=== PATIENT | female | born 2000 | race Caucasian/White ===

== ENCOUNTER → 2019-02-28 10:20 | Outpatient (BNVA) | payer SELFPAY | PROVIDERS: Visit Provider Emergency Medicine | DX: M54.9 Dorsalgia, unspecified (principal); M54.5 Low back pain; R11.2 Nausea with vomiting, unspecified | CPT/HCPCS: 81003; 81025 ==

== ENCOUNTER → 2019-03-05 09:47 | Outpatient (BNVA) | payer SELFPAY | PROVIDERS: PCP Emergency Medicine; Visit Provider Emergency Medicine | DX: R11.2 Nausea with vomiting, unspecified (principal); R10.9 Unspecified abdominal pain | CPT/HCPCS: 81003; 81025 ==

== ENCOUNTER 2020-01-03 17:02 | Emergency (ER) | payer SELFPAY ==
[2020-01-03 17:10] VITALS: BP 138/75; PULSE 78; RESP 18; TEMP 36.5; O2SAT 100; BMI 22.3
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
[2020-01-03] MEDS: acetaminophen 500 mg Tablet 1000 MG PO (17:51)
[2020-01-03 18:02] LABS: HCG Qualitative Urine. Negative (Negative)
[2020-01-03 18:26] VITALS: BP 109/61; PULSE 66; RESP 14; O2SAT 97
== END 2020-01-03 18:27 | disposition home or self-care (01) ==
PROVIDERS: Emergency Provider Physician Assistant; PCP Emergency Medicine
DX: S13.4XXA Sprain of ligaments of cervical spine, initial encounter (principal); R51.9 Headache, unspecified; V49.40XA Driver injured in collision with unspecified motor vehicles in traffic accident, initial encounter
CPT/HCPCS: 12345; 70450; 72125; 81025; 99281; 99283

== ENCOUNTER 2020-05-05 11:42 | Emergency (ER) | payer SELFPAY ==
[2020-05-05 12:02] VITALS: BP 112/76; PULSE 95; RESP 16; TEMP 36.8; O2SAT 96; BMI 23.1
[2020-05-05] MEDS: sodium chloride 0.9% 1,000 ML 999 ML IV (12:38)
[2020-05-05] MEDS: ondansetron 2 mg/ML SDV 2 mL 4 MG IVP (12:39)
[2020-05-05 13:00] LABS: Basophils % 0.3 %; Eosinophils % 0.1 %; Hematocrit 42.8 % (37.0-47.0); Hemoglobin 13.9 g/dL (11.5-15.3); Lymphocytes # 0.4 10^3/uL (1.5-6.5); Lymphocytes % 2.9 %; Mean Corpuscular HGB Conc 32.5 g/dL (30.0-36.0); Mean Corpuscular Hemoglobin 28.1 pg (28.0-34.0); Mean Corpuscular Volume 86.5 fL (81-99); Mean Platelet Volume 10.3 fL (7.4-10.4); Monocytes # 0.4 10^3/uL (0.2-0.9); Monocytes % 3.4 %; Neutrophils # 11.76 10^3/uL (1.8-8.0); Neutrophils % 93.1 %; Nucleated Red Blood Cells % 0 %; Platelet Count 228 10^3/cmm (130-400); Red Blood Count 4.95 10^6/uL (4.1-5.3); Red Cell Distribution Width 13.4 % (12.1-15.1); White Blood Count 12.6 10^3/uL (4.5-13.0)
--- NOTE | 2020-05-05 13:05 | W.ED.NAVMDI ---
HPI - Nausea/Vomiting/Diarrhea General: Chief complaint: Nausea/Vomiting/Diarrhea Stated complaint: N/V Time Seen by Provider: 05/05/20 12:17 History of Present Illness: HPI Narrative: Patient is a previously well 19-year-old female who comes to the ER complaining of nausea vomiting and diarrhea since 2 AM this morning. She says she also has other sick family members around with similar symptoms. Denies eating any bad foods, raw, undercooked, . She has the worst symptoms of her family and is unable to keep down liquids. Denies abdominal pain MD elicited complaint: nausea, vomiting and diarrhea Description of vomiting: food contents Description of diarrhea: watery Associated nausea: Yes Location of pain: None Severity: moderate Quality: cramping Exacerbating factors: eating Relieving factors: none Associated symtoms: Reports nausea; Denies anxiety, change in vision, chest pain, dizziness, fatigue, headache(s) or palpitations Review of Systems General: Reports: 10 or more systems reviewed and unremarkable except in HPI and below Const: Denies: fatigue Eyes: Denies: change in vision, blurry vision or eye redness ENMT: Denies: throat pain, swelling of lips/tongue, ear or mastoid pain or nasal congestion Card: Denies: chest pain, palpitations, irregular heart rhythm, edema, dyspnea on exertion or orthopnea Resp: Denies: dyspnea, productive cough or non-productive cough GI: Reports: nausea : Denies: flank pain, difficulty voiding, urinary frequency or urinary urgency Musc: Denies: neck pain, back pain, extremity pain, joint pain, joint redness, limited range of motion or muscle weakness Skin/Breast: Denies: rash, pruritus, erythema, skin pain or skin tenderness Neuro: Denies: headache(s), numbness in extremities, weakness in extremities, sensory changes, difficulty walking, dizziness, confusion or Slurred speech present Psych: Denies: anxiety or depression Endo: Denies: polyuria All/Imm: Denies: urticaria, throat swelling or tongue swelling PFSH ED PFSH: Family History Other Cancer Social History Smoking and tobacco status: never smoked Alcohol intake: never History of recent travel: No Current gender identity: Female Female Reproductive History: Date of last menstrual period: 04/11/20 Spontaneous abortions: No Physical Exam Const: COMMON NORMALS: no acute distress, average body habitus, patient oriented x3, no limitations, healthy appearing, alert and well nourished GENERAL APPEARANCE: cooperative, comfortable, well kempt and well developed ORIENTATION/CONSCIOUSNESS: Yes awake, Yes oriented to person, Yes oriented to place and Yes oriented to time HENMT: COMMON NORMALS: normocephalic, external ears normal and Normal external nose present HEAD & SCALP: normal to inspection and normocephalic NOSE: Normal external nose present EXTERNAL EAR: Yes external ears normal MOUTH: Normal oral and palatal mucosa present THROAT: posterior oropharynx normal Eye: COMMON NORMALS: Equal, round and reactive pupils present and EOMs intact bilaterally GENERAL EYE: appearance normal, both eyes and all related structures PUPIL: Yes Equal, round and reactive pupils present Neck/C-Spine: COMMON NORMALS: full ROM, no lymphadenopathy, no meningeal signs and no JVD GENERAL: Yes normal visual inspection Lymph: LYMPHATIC: no lymphadenopathy noted Chest: COMMONS NORMALS: normal inspection of the chest and normal palpation of entire chest wall Resp: COMMON NORMALS: normal respiratory effort, No retractions, No use of accessory muscles, clear to auscultation bilaterally and percussion normal EFFORT & INSPECTION: Yes able to speak in complete sentences AUSCULTATION: clear to auscultation bilaterally PERCUSSION: percussion normal Cardio: COMMON NORMALS: no JVD, regular rate, regular rhythm, S1 normal heart sound present, S2 normal heart sound present and Peripheral pulses 2+ throughout RATE: regular rate RHYTHM: regular rhythm HEART SOUNDS: S1 normal heart sound present and S2 normal heart sound present PERIPHERAL PULSES: Peripheral pulses 2+ throughout GI: COMMON NORMALS: Normal to inspection, nondistended, normoactive bowel sounds present, Soft to palpation, non-tender and no masses INSPECTION: Yes normal to inspection PALPATION: Yes Soft to palpation : COMMON NORMALS: Yes no CVA tenderness BLADDER/KIDNEY EXAM: Yes no CVA tenderness Back/Pelvis: COMMON NORMALS: no CVA tenderness, thoracic and lumbar spine normal to inspection, no thoracic nor lumbar tenderness and thoraco-lumbar ROM normal Extremity: COMMON NORMALS: normal to inspection, full ROM, capillary refill normal, no joint enlargement and no pedal edema GENERAL: Yes normal exam except as noted Neuro: COMMON NORMALS: patient oriented x3, CN's II-XII intact bilaterally, moves all extremities, no focal motor deficits, no sensory deficits noted and gait normal SENSORIUM/ORIENTATION: Yes alert, Yes oriented to person, Yes oriented to place and Yes oriented to time MENINGEAL SIGNS: Yes no meningeal signs Psych: COMMON NORMALS: mental status grossly normal, Normal thought process present, cooperative, normal affect and speech normal APPEARANCE: Yes well kempt ATTITUDE: Yes calm SPEECH: Yes normal speech THOUGHT PROCESS: Normal thought process present Skin: COMMON NORMALS: no rashes or lesions noted GENERAL SKIN EXAM: no rashes or lesions noted Course Vital Signs: Vital signs: Vital Signs Temperature 98.3 F 05/05/20 12:02 Pulse Rate 95 05/05/20 12:02 Respiratory Rate 16 05/05/20 12:02 Blood Pressure 112/76 05/05/20 12:02 Pulse Oximetry 96 05/05/20 12:02 MDM - Nausea/Vomiting/Diarrhea MDM Narrative: Medical decision making narrative: The patient came in after an episode of vomiting and diarrhea this for the past 10 to 12 hours. In the ER she has not vomited nor diarrhea. She was given Zofran and IV fluids with improvement of her symptoms and she was resting comfortably in the room. She is able to tolerate sips of water and stable for discharge home. Also has a slight pain to her left lower molar. We will discharge her with amoxicillin. Recommended she follow-up with dentist in a couple days to discuss further and return to the ER with any worsening symptoms. Lab Data: Labs: Lab Results 05/05/20 05/05/20 05/05/20 Range/Units 12:27 12:38 12:38 WBC 12.6 (4.5-13.0) 10^3/ uL RBC 4.95 (4.1-5.3) 10^6/u L Hgb 13.9 (11.5-15.3) g/dL Hct 42.8 (37.0-47.0) % MCV 86.5 (81-99) fL MCH 28.1 (28.0-34.0) pg MCHC 32.5 (30.0-36.0) g/dL RDW 13.4 (12.1-15.1) % Plt Count 228 (130-400) 10^3/c mm MPV 10.3 (7.4-10.4) fL Neut % (Auto) 93.1 % Lymph % (Auto) 2.9 % Aurora % (Auto) 3.4 % Eos % (Auto) 0.1 % Baso % (Auto) 0.3 % Neut # (Auto) 11.76 H (1.8-8.0) 10^3/u L Lymph # (Auto) 0.4 L (1.5-6.5) 10^3/u L Aurora # (Auto) 0.4 (0.2-0.9) 10^3/u L Eos # (Auto) 0.0 (0.0-0.8) 10^3/u L Baso # (Auto) 0.0 (0.0-0.1) 10^3/u L Nucleated RBC % (a uto) 0 % Nucleated RBCs # 0.0 /100WBC Sodium 137 (136-145) mmol/L Potassium 4.1 (3.5-5.1) mmol/L Chloride 103 (98-107) mmol/L Carbon Dioxide 22 (22-29) mmol/L Anion Gap 16.1 (5-19) BUN 14 (6-20) mg/dL Creatinine 0.7 (0.5-0.9) mg/dL GFR Calculation 106.7 (90-130) mL/min Glucose 118 H (65-115) mg/dL Calculated Osmolal ity 286 (285-295) mOsm/k g Lactate 1.1 (0.5-2.2) mmol/L Calcium 9.3 (8.5-10.5) mg/dL Total Bilirubin 0.5 (0.15-1.2) mg/dL AST 24 (0-32) U/L ALT 51 H (0-33) U/L Alkaline Phosphata se 84 (35-105) IU/L Total Protein 8.3 (6.6-8.7) g/dL Albumin 4.7 (3.5-5.2) g/dL Globulin 3.6 (1.3-4.6) g/dL Lipase 18 (13-60) U/L HCG, Qual (Negative) Urine Color (Yellow) Urine Appearance (CLEAR) Urine pH (5-7) Ur Specific Gravit y (1.005-1.030) Urine Protein (Negative) Urine Glucose (UA) (Normal) Urine Ketones (Negative) Urine Blood (Negative) Urine Nitrate (Negative) Urine Bilirubin (Negative) Urine Urobilinogen (Negative) mg/dL Ur Leukocyte Jenifer ase (Negative) 05/05/20 05/05/20 Range/Units 12:38 13:16 WBC (4.5-13.0) 10^3/ uL RBC (4.1-5.3) 10^6/u L Hgb (11.5-15.3) g/dL Hct (37.0-47.0) % MCV (81-99) fL MCH (28.0-34.0) pg MCHC (30.0-36.0) g/dL RDW (12.1-15.1) % Plt Count (130-400) 10^3/c mm MPV (7.4-10.4) fL Neut % (Auto) % Lymph % (Auto) % Aurora % (Auto) % Eos % (Auto) % Baso % (Auto) % Neut # (Auto) (1.8-8.0) 10^3/u L Lymph # (Auto) (1.5-6.5) 10^3/u L Aurora # (Auto) (0.2-0.9) 10^3/u L Eos # (Auto) (0.0-0.8) 10^3/u L Baso # (Auto) (0.0-0.1) 10^3/u L Nucleated RBC % (a uto) % Nucleated RBCs # /100WBC Sodium (136-145) mmol/L Potassium (3.5-5.1) mmol/L Chloride (98-107) mmol/L Carbon Dioxide (22-29) mmol/L Anion Gap (5-19) BUN (6-20) mg/dL Creatinine (0.5-0.9) mg/dL GFR Calculation (90-130) mL/min Glucose (65-115) mg/dL Calculated Osmolal ity (285-295) mOsm/k g Lactate (0.5-2.2) mmol/L Calcium (8.5-10.5) mg/dL Total Bilirubin (0.15-1.2) mg/dL AST (0-32) U/L ALT (0-33) U/L Alkaline Phosphata se (35-105) IU/L Total Protein (6.6-8.7) g/dL Albumin (3.5-5.2) g/dL Globulin (1.3-4.6) g/dL Lipase (13-60) U/L HCG, Qual Negative (Negative) Urine Color Yellow (Yellow) Urine Appearance Clear (CLEAR) Urine pH 6.5 (5-7) Ur Specific Gravit y 1.010 (1.005-1.030) Urine Protein Neg (Negative) Urine Glucose (UA) Norm (Normal) Urine Ketones Negative (Negative) Urine Blood Neg (Negative) Urine Nitrate Negative (Negative) Urine Bilirubin Neg (Negative) Urine Urobilinogen Norm (Negative) mg/dL Ur Leukocyte Jenifer ase Negative (Negative) Discharge Plan Discharge Patient Disposition: Home Clinical Impression: Gastroenteritis Condition: Stable Prescriptions: New ondansetron 4 mg tablet,disintegrating 4 mg PO Q8H PRN (Reason: Nausea And Vomiting) 5 Days Qty: 15 RF: 0 amoxicillin 500 mg capsule 500 mg PO TID 10 Days Qty: 30 RF: 0 No Action citalopram 10 mg tablet 10 mg PO BEDTIME RF: 0 hydroxyzine HCl 25 mg tablet 25 - 50 mg PO TID PRN (Reason: Anxiety) RF: 0 chlorhexidine gluconate 0.12 % mouthwash See Rx Instructions .ROUTE .COMPLEX RF: 0 Discharge Orders: Discharge ED (Routine); Ordered 05/05/20 Ordered By: Jose Delatorre Referrals: Quentin Kcoh PA [Primary Care Provider] - Discharge Diet: Advance as tolerated Discharge Activity: Resume usual activity Patient Instructions: Gastroenteritis (ED), Toothache (ED), Opioid Safety Activity Restrictions/Additional Instructions: You have had an episode of vomiting and diarrhea. Please use Zofran to help with your nausea and drink lots of fluids. Return to the ER with worsening symptoms and follow-up with your dentist to discuss your dental pain further. ER with worsening symptoms Stand Alone Forms: Work/School Release Coding Level of Care Code ED Plow Holder for Mikaela Fwd Exam Comprehensive
[2020-05-05 13:09] LABS: Lactate (Lactic Acid level) 1.1 mmol/L (0.5-2.2)
[2020-05-05 13:29] LABS: Add Urine Microscopic? NO
[2020-05-05 13:30] LABS: Bilirubin Urine Neg (Negative); Blood Urine Neg (Negative); Glucose Urine UA Norm (Normal); Ketones Urine Negative (Negative); Leukocyte Esterase Urine Negative (Negative); Nitrate Urine Negative (Negative); Protein Urine Neg (Negative); Urine Appearance Clear (CLEAR); Urine Color Yellow (Yellow); Urobilinogen Urine Norm (Negative); pH Urine 6.5 (5-7)
[2020-05-05 13:39] LABS: Alanine Aminotransferase 51 U/L (0-33); Albumin Level 4.7 g/dL (3.5-5.2); Alkaline Phosphatase 84 IU/L (35-105); Anion Gap 16.1 (5-19); Aspartate Amino Transferase 24 U/L (0-32); Blood Urea Nitrogen 14 mg/dL (6-20); Calcium 9.3 mg/dL (8.5-10.5); Carbon Dioxide 22 mmol/L (22-29); Chloride 103 mmol/L (98-107); Globulin 3.6 g/dL (1.3-4.6); Glomerular Filtration Rate 106.7 mL/min (90-130); Glucose 118 mg/dL (65-115); Lipase 18 U/L (13-60); Osmolality Calculated 286 mOsm/kg (285-295); Potassium 4.1 mmol/L (3.5-5.1); Sodium 137 mmol/L (136-145); Total Bilirubin 0.5 mg/dL (0.15-1.2); Total Protein 8.3 g/dL (6.6-8.7)
[2020-05-05 14:09] LABS: HCG, Serum Qual Negative (Negative)
== END 2020-05-05 15:20 | disposition home or self-care (01) ==
PROVIDERS: Emergency Provider Family Medicine; PCP Emergency Medicine
DX: K52.9 Noninfective gastroenteritis and colitis, unspecified (principal)
CPT/HCPCS: 80053; 81003; 83605; 83690; 84703; 85025; 96361; 96374; 99283; J2405; J7030

== ENCOUNTER → 2020-08-31 17:00 | Outpatient (BNVA) | payer BC, SELFPAY | PROVIDERS: PCP Emergency Medicine; Visit Provider Nurse Practitioner Family | DX: Z34.90 Encounter for supervision of normal pregnancy, unspecified, unspecified trimester (principal) | CPT/HCPCS: 81025 ==

== ENCOUNTER 2021-01-12 17:11 | Emergency (ER) | payer MEDICAID, SELFPAY ==
[2021-01-12 17:27] VITALS: BP 112/74; PULSE 93; RESP 18; TEMP 37.2; O2SAT 97; BMI 22.3
--- NOTE | 2021-01-12 17:34 | W.ED.URI ---
HPI - URI/Sore Throat General: Chief Complaint: Shortness of Breath/Dyspnea Stated Complaint: COVID +/GENERAL UNWELLNESS Time Seen by Provider: 01/12/21 17:33 History of Present Illness: HPI Narrative: Patient comes in for evaluation due to testing positive for COVID-19 on Sunday. Patient talked to her ACTIVATED SLUDGE ATTENDANT today, as she is 23 weeks , they recommended she be checked out in the ER since she is feeling poorly. Patient is scheduled to be seen tomorrow in [place] to be evaluated for monoclonal antibody therapy. Patient is alert oriented. Patient appears mildly unwell but not toxic. Patient appears no acute distress. Associated symptoms: Reports chills and fever(s) Review of Systems General: Reports: 10 or more systems reviewed and unremarkable except in HPI and below Const: Reports: fever(s), chills and malaise PFSH ED PFSH: Family History Other Cancer Social History Smoking and tobacco status: never smoked Alcohol intake: never History of recent travel: No Current gender identity: Female Female Reproductive History: Date of last menstrual period: 04/11/20 Spontaneous abortions: No Physical Exam Const: COMMON NORMALS: no acute distress and patient oriented x3 GENERAL APPEARANCE: cooperative HENMT: COMMON NORMALS: normocephalic and Normal external nose present HEAD & SCALP: normal to inspection and normocephalic NOSE: Normal external nose present Eye: GENERAL EYE: appearance normal, both eyes and all related structures Neck/C-Spine: COMMON NORMALS: full ROM Chest: COMMONS NORMALS: normal inspection of the chest Resp: COMMON NORMALS: normal respiratory effort and clear to auscultation bilaterally EFFORT & INSPECTION: Yes able to speak in complete sentences AUSCULTATION: clear to auscultation bilaterally Cardio: COMMON NORMALS: regular rate and regular rhythm PALPATION: normal PMI RATE: regular rate RHYTHM: regular rhythm GI: COMMON NORMALS: non-tender : COMMON NORMALS: Yes no CVA tenderness BLADDER/KIDNEY EXAM: Yes no CVA tenderness Back/Pelvis: COMMON NORMALS: no CVA tenderness and thoracic and lumbar spine normal to inspection Extremity: COMMON NORMALS: normal to inspection Neuro: COMMON NORMALS: patient oriented x3 and moves all extremities Psych: COMMON NORMALS: mental status grossly normal and cooperative Skin: COMMON NORMALS: no rashes or lesions noted GENERAL SKIN EXAM: no rashes or lesions noted Course Vital Signs: Vital signs: Vital Signs Temperature 99.0 F 01/12/21 17:27 Pulse Rate 93 01/12/21 17:27 Respiratory Rate 18 01/12/21 17:27 Blood Pressure 112/74 01/12/21 17:27 Pulse Oximetry 97 01/12/21 17:27 MDM - URI/Sore Throat MDM Narrative: Medical decision making narrative: 20-year-old female comes in today for evaluation. Patient has been ill since Sunday and did testing at [facility] emergency room on Sunday and tested positive for COVID-19. Patient had talked to her ACTIVATED SLUDGE ATTENDANT today, as she is 23 weeks , and they are setting up for her to be evaluated for monoclonal antibody therapy tomorrow. They recommended she be evaluated in the ER today due to feeling poorly. Exam is unremarkable. Lungs are clear to auscultation heart rates regular in the 80s with no murmur. Vital signs are normal. Differential diagnosis includes Covid pneumonia, COVID-19 infection, dehydration. Reviewed exam with patient recommending home and rest continue drinking plenty of fluids and using acetaminophen for fever and discomfort. I think the patient probably would benefit from monoclonal antibody therapy she already has an appointment to be evaluated and treated in [place] tomorrow and I will not be able to perform this any sooner. I recommended patient do supportive care and follow-up with primary care and ACTIVATED SLUDGE ATTENDANT for further instruction. Discharge Plan Discharge Patient Disposition: Home Clinical Impression: COVID-19 affecting in second trimester Condition: Stable Prescriptions: No Action doxylamine-pyridoxine (vit B6) [Diclegis] 10-10 mg tablet,delayed release (DR/EC) 1 tab PO BID Qty: 30 RF: 0 omeprazole 20 mg capsule,delayed release(DR/EC) 20 mg PO DAILY RF: 0 promethazine 25 mg tablet 25 mg PO TID PRNRF: 0 Discharge Orders: Discharge ED (Routine); Ordered 01/12/21 Ordered By: Kurtis Mims Referrals: Quentin Koch PA [Primary Care Provider] - Discharge Diet: Usual diet Discharge Activity: Increase activity as tolerated Patient Instructions: Viral Syndrome (ED) Activity Restrictions/Additional Instructions: Home and rest. Drink plenty of fluids. Use acetaminophen as needed for fever. Keep appointment for follow-up with ACTIV[employer] SLUDGE ATTENDANT tomorrow for monoclonal antibody therapy. Return to ER for new concerns. Coding Level of Care Code ED Bilingual Medical Assistant for Mikaela Yousif
[2021-01-12 18:02] VITALS: BP 112/74; PULSE 93; RESP 18; TEMP 37.2; O2SAT 97
== END 2021-01-12 18:03 | disposition home or self-care (01) ==
PROVIDERS: Emergency Provider Nurse Practitioner Family; PCP Emergency Medicine
DX: O98.512 Other viral diseases complicating pregnancy, second trimester (principal); U07.1 COVID-19; Z3A.23 23 weeks gestation of pregnancy
CPT/HCPCS: 99281

== ENCOUNTER 2021-04-05 13:44 | Outpatient (CLI) | payer MEDICAID, SELFPAY ==
[2021-04-05] VITALS (8 sets, daily range): BP systolic 110–119; BP diastolic 59–77; PULSE 64–90; RESP 17
[2021-04-05] MEDS: lactated ringers 1,000 ML 999 ML IV (14:48)
[2021-04-05] MEDS: lactated ringers 1,000 ML 125 ML IV (15:58)
--- NOTE | 2021-04-05 17:01 | PC.NURSE ---
Dr Chaparro ordered pt to receive a dose of terbutaline. Patient refused stating that she doesn't like to take the meds because they didn't work with her last . Nurse educated pt on risks of not taking the medication, discussed potential for baby to need NICU care. Pt stated that she doesn't care. She hopes that she will go home and keep [facility] and will just go ahead and have the baby.
== END 2021-04-05 17:05 | disposition home or self-care (01) ==
LOC: OPOB 13:45 → OBGYN 13:46
PROVIDERS: PCP Emergency Medicine; Visit Provider Obstetrics & Gynecology
DX: O26.899 Other specified pregnancy related conditions, unspecified trimester (principal); Z3A.00 Weeks of gestation of pregnancy not specified; R10.9 Unspecified abdominal pain
CPT/HCPCS: 59025; 99211

== ENCOUNTER → 2021-08-31 11:09 | Outpatient (BNVA) | payer MEDICAID, SELFPAY | PROVIDERS: PCP Emergency Medicine; Visit Provider Emergency Medicine | DX: Z20.822 Contact with and (suspected) exposure to COVID-19 (principal); B34.9 Viral infection, unspecified | CPT/HCPCS: 87426 ==

== ENCOUNTER → 2021-08-31 11:09 | Outpatient (BNVA) | payer MEDICAID, SELFPAY | PROVIDERS: PCP Emergency Medicine; Visit Provider Emergency Medicine | DX: B34.9 Viral infection, unspecified (principal) | CPT/HCPCS: 87426 ==

== ENCOUNTER → 2021-11-16 09:29 | Outpatient (BNVA) | payer MEDICAID, SELFPAY | PROVIDERS: PCP Nurse Practitioner Family; Visit Provider Nurse Practitioner Family | DX: M54.2 Cervicalgia (principal); M54.6 Pain in thoracic spine | CPT/HCPCS: 72040; 72072 ==

== ENCOUNTER → 2023-05-02 17:29 | Outpatient (BNVA) | payer MEDICAID, SELFPAY | PROVIDERS: PCP Nurse Practitioner Family; Visit Provider Emergency Medicine | DX: J02.9 Acute pharyngitis, unspecified (principal); J11.1 Influenza due to unidentified influenza virus with other respiratory manifestations | CPT/HCPCS: 87071; 87880 ==

== ENCOUNTER 2024-10-15 10:49 | Emergency (ER) | payer BC, MEDICAID, SELFPAY ==
--- OUTSIDE RECORDS SUMMARY | 2024-10-15 10:54 | XMS_ITS | Encounter Summary ---
[facility] Address [address] [place] [address] Care Team Providers Care Nuclear Test Technician Name Role Phone Mo Bingham Primary Care Provider [phone] Encounter Details Date Type Department Care Team (Late st Contact Info) Description 01/13/2021 Lab Requisition [facility] [address] [place] [id number] Eleazar Catalina GER[facility]D [facility] [phone] Social History Tobacco Use Types Packs/Day Years Used Date Smoking Tobacco: Never Smokeless Tobacco: Never Alcohol Use Standard Drinks/Week Comments No 0 (1 standard drink = 0.6 oz pur e alcohol) Comments Yes Sex and Gender Information Value Date Recorded Sex Assigned at Female 04/29/2023 6:21 AM CDT Legal Sex Female 1:51 PM FURNITURE REPAIR TECHNICIAN Gender Identity Female 04/29/2023 6:21 AM CDT Sexual Orientation Not on file COVID-19 Exposure Response Date Recorded In the last month, have you been in contact with someone who was confirmed or suspected to have Coronavirus / COVID-19? Yes 01/13/2021 2:51 PM FURNITURE REPAIR TECHNICIAN documented as of this encounter Plan of Treatment Upcoming Encounters Date Type Department Care Team (Late st Contact Info) Description 11/04/2024 9:00 AM CDT Office Visit [facility] O[facility] [place] [address] [place] [address] Susanne Maxwell FNP [address] [place] [address] 11/11/2024 10:30 AM CDT Office Visit [facility] OBGYN [place] [address] [place] [address] Christopher Rodríguez MD [address] [place] [address] documented as of this encounter Procedures Procedure Name Priority Date/Time Associated Diagnosis Comments EXTRA TUBE (SST/GOLD) Routine 01/13/2021 4:17 PM FURNITURE REPAIR TECHNICIAN CBC WITH DIFFERENTIAL Stat 01/13/2021 4:17 PM FURNITURE REPAIR TECHNICIAN BASIC METABOLIC PANEL Stat 01/13/2021 4:17 PM FURNITURE REPAIR TECHNICIAN documented in this encounter Results * EXTRA TUBE (SST/GOLD) (01/13/2021 4:17 PM FURNITURE REPAIR TECHNICIAN) Blood Collection / Unknown 01/13/2021 4:17 PM FURNITURE REPAIR TECHNICIAN 01/13/2021 5:44 PM FURNITURE REPAIR TECHNICIAN May Jeremias Bush [facility] CHEMISTRY ORDERABLES Rubia poon Result [facility] LABORATORY SERVICES [facility] CLIA # [id number] [id number] [place], [place] [id number] * (ABNORMAL) BASIC METABOLIC PANEL (01/13/2021 4:17 PM FURNITURE REPAIR TECHNICIAN) Pathologist [facility] SODIUM 138 136 - 145 mmol/L 01/13/2021 6:[address] [facility] POTASSIUM 3.2(L) 3.5 - 5.1 mmol/L 01/13/2021 6:[address] [facility] CHLORIDE 104 98 - 107 mmol/L 01/13/2021 6:[address] [facility] CO2 21(L) 22 - 29 mmol/L 01/13/2021 6:[address] [facility] CALCIUM 8.5(L) 8.6 - 10.0 mg/dL 01/13/2021 6:[address] [facility] BUN 4(L) 6 - 20 mg/dL 01/13/2021 6:[address] [facility] CREATININE 0.53 0.51 - 0.95 mg/dL 01/13/2021 6:[address] [facility] GLUCOSE 98 74 - 99 mg/dL 01/13/2021 6:[address] [facility] GFR >60 mL/min/1.7 3 sq meter 01/13/2021 6:[address] [facility] Comment: eGFR has not been validated for use in the elderly (> 70 years of age), women, patients with serious co-morbid conditions, or persons with extremes of body size or muscle mass and should also be interpreted with caution in patients with acute kidney failure, dialysis dependent patients, patients reporting exceptional dietary intake (e.g. vegetarian diet, high protein diets, creatine supplementation), and patients with severe liver disease. Based on National Kidney Disease Education Program If patient is , please refer to the GFR result. GFR, >60 mL/min/1.7 3 sq meter 01/13/2021 6:[address] [facility] ANION GAP 13 9 - 20 mmol/L 01/13/2021 6:[address] [facility] Blood Collection / Unknown 01/13/2021 4:17 PM FURNITURE REPAIR TECHNICIAN 01/13/2021 5:43 PM FURNITURE REPAIR TECHNICIAN May Jeremias Bush [facility] CHEMISTRY ORDERABLES Rubia cleve Result [facility] CLIA # [id number] [address] [facility] [place] [address] * (ABNORMAL) CBC WITH DIFFERENTIAL (01/13/2021 4:17 PM FURNITURE REPAIR TECHNICIAN) [facility] WBC 4.4(L) 4.5 - 11.0 K/uL 01/13/2021 5:[address] [facility] RBC 3.93(L) 4.20 - 5.40 M/uL 01/13/2021 5:[address] [facility] HEMOGLOBIN 11.1(L) 12.0 - 16.0 g/dL 01/13/2021 5:[address] [facility] HEMATOCRIT 34.4(L) 36.0 - 46.0 % 01/13/2021 5:[address] [facility] MCV 87.5 84.0 - 103.0 fL 01/13/2021 5:[address] [facility] MCH 28.2 27.0 - 34.0 pg 01/13/2021 5:[address] [facility] MCHC 32.3 30.0 - 35.0 g/dL 01/13/2021 5:[address] [facility] RDW 14.3 11.0 - 14.5 % 01/13/2021 5:[address] [facility] RDW-STDEV 46.1 37.0 - 54.0 fL 01/13/2021 5:[address] [facility] PLATELETS 182 140 - 440 K/uL 01/13/2021 5:[address] [facility] MPV 10.2 8.9 - 12.8 fL 01/13/2021 5:[address] [facility] NEUTROPHILS 74 42 - 75 % 01/13/2021 5:[address] [facility] LYMPHOCYTES 17(L) 24 - 44 % 01/13/2021 5:[address] [facility] MONOCYTES 8 2 - 10 % 01/13/2021 5:[address] [facility] EOSINOPHILS 1 0 - 7 % 01/13/2021 5:[address] [facility] BASOPHILS 0 0 - 1 % 01/13/2021 5:[address] [facility] IMMATURE GRANULOCYTES 0 0 - 2 % 01/13/2021 5:[address] [facility] NEUTROPHIL ABSOLUTE 3.30 2.00 - 8.00 K/uL 01/13/2021 5:[address] [facility] LYMPHOCYTE ABSOLUTE 0.74(L) 1.20 - 4.00 K/uL 01/13/2021 5:[address] [facility] MONOCYTE ABSOLUTE 0.35 0.10 - 0.60 K/uL 01/13/2021 5:[address] [facility] EOSINOPHIL ABSOLUTE 0.03 0.00 - 0.70 K/uL 01/13/2021 5:[address] [facility] BASOPHILS ABSOLUTE 0.01 0.00 - 0.20 K/uL 01/13/2021 5:[address] [facility] IMMATURE GRANULOCYTES ABSOLUTE 0.01 0.00 - 0.10 K/uL 01/13/2021 5:[address] [facility] Blood Collection / Unknown 01/13/2021 4:17 PM FURNITURE REPAIR TECHNICIAN 01/13/2021 5:42 PM FURNITURE REPAIR TECHNICIAN May Jeremias Bush NON DESTRUCTIVE EVALUATION MANAGER HEMATOLOGY ORDERABLES Fin al Result [facility] CLIA # [id number] [address] [address] [place] [address] documented in this encounter Visit Diagnoses Not on filedocumented in this encounter Care Teams Nuclear Test Technician Relationship Specialty Start Date End Date Mo Bingham DO [address] [place] [address] PCP - General 05/10/20 documented as of this encounter
--- OUTSIDE RECORDS SUMMARY | 2024-10-15 10:54 | XMS_ITS | Clinical Summary ---
Author Organization [facility] on Address [address] [place] [address] [place] [address] Phone Care Team Providers Care Ornamenter Name Role Phone Mo Bingham DO Primary Care Provider [phone] Allergies No known active allergies Medications dicyclomine (BENTYL) 20 mg tablet take one tablet by mouth four times daily Active dicyclomine (BENTYL) 20 mg tablet Take 1 Tablet (20 mg) by mouth 4 times daily. 120 Tablet 08/14/19 24 Active progesterone micronized (PROMETRIUM) 100 mg Capsule Take 100 mg by mouth daily. 02/24/19 25 Active ibuprofen (MOTRIN) 800 mg tablet take 1 tablet by mouth every 8 hours with food or milk as needed 09/09/19 25 Active sertraline (ZOLOFT) 50 mg tablet Take 1 Tablet by mouth daily at bedtime. 08/08/19 25 Active acetaminophen (TYLENOL) 500 mg tablet Take 2 Tablets (1,000 mg) by mouth every 8 hours. 09/19/19 25 Active promethazine (PHENERGAN) 12.5 mg Tablet Take 1 Tablet by mouth every 6 hours. 03/28/19 24 025 Discontinued oxyCODONE (ROXICODONE) 5 mg tabletIndicati ons:Postoperat sofie pain Take 1 Tablet (5 mg) by mouth every 4 hours as needed for Pain, Break-Throu gh. 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 Generalized anxiety disorder 05/10/2020 Abdominal pain, acute, right upper quadrant 08/06 Abnormal weight loss 12/09/2017 Routine follow-up 11/28/2016 Resolved Problems Problem Noted Date Diagnosed Date Resolved Date Threatened labor 03/16/2021 affected by growth restriction 02/02/2021 05/24/2021 24 weeks gestation of 01/18/2021 03/07/2021 Hyperemesis gravidarum 12/03/201703/07 Encounter for supervision of normal first in first trimester 12/03/2017 05/24/2021 Vaginal delivery 05/24/2021 Gestational hypertension, third trimester 05/24/2021 Encounters Date Type Department Care Team Description 10/01/2024 Results Follow-Up [facility] [address] [place] [address] Christopher Rodríguez MD VAGINOSIS/VAGINITIS PANEL PLUS 09/30/2024 9:10 AM CDT Office Visit [facility] [address] [place] [address] Christopher Rodríguez MD Vaginal irritation (Primary Dx); Postop check 09/23/2024 External Device Data STL ABSTRACTION Provider, Abstract 09/23/2024 Orders Only [facility] [address] [place] [address] Carlotta Oliveira RN Postoperative pain 09/22/2024 Telephone [facility] [address] [facility] [address] [place] [address] Christopher Rodríguez MD pictures and prescription/JAF 09/19/2024 Orders Only [address] [place] [address] Carlotta Oliveira, JOSSIE Postoperative pain 09/19/[address] [place] [address] Christopher Rodríguez MD prescription/JAF 09/18/2024 1:34 PM CDT Anesthesia Event [facility] [address] [place] [address] Uche Rodriguez MD [facility], 09/18/2024 1:26 PM CDT - 09/18/2024 2:21 PM CDT Surgery [facility] [address] [place] [address] Christopher Rodríguez MD LAPAROSCOPY DIAGNOSTIC/OPERATIVE 09/18/2024 11:48 AM CDT - 09/18/2024 4:20 PM CDT Hospital Encounter [facility] Pre-Op [address] [place] [address] Christopher Rodríguez MD Painful menstrual periods Discharge Disposition: Home or Self Care 09/18/[address] [place] [address] Christopher Rodríguez MD running late/JAF 09/15/2024 10:00 AM CDT - 09/15/2024 11:59 PM CDT Hospital Encounter [facility] Pre Admission Testing [address] [place] [id number] Christopher Rodríguez MD Discharge Disposition: Home or Self Care 09/15/2024 9:10 AM CDT History & Physical [facility] [place] [address] [place] [address] Christopher Rodríguez MD Pre-op testing (Primary Dx); Preop examination 08/20/2024 External Device Data STL ABSTRACTION Provider, Abstract 08/20/2024 External Device Data STL ABSTRACTION Provider, Abstract 08/19/2024 Orders Only [facility] [place] [address] [place] [address] Christopher Rodríguez MD 07/23/2024 External Device Data STL ABSTRACTION Provider, Abstract from Last 3 Months Immunizations Immunization Administration Dates Next Due (ADACEL/BOOSTRIX)(10 YR UP) TDAP VACCINE, 0.5ML, IM 04/29/2018 INFLUENZA VACCINE QUADRIVALENT 3 YR UP PF IM 09/2017 Influenza Seasonal Unspecified Formulation IM Family History Medical History Relation Name Comments Diabetes Father Aleksey chatterjee Colon Cancer Maternal Aunt 1 Colon Cancer Maternal Aunt 2 Brionna Auguste Celiac Disease Mother Palma work Cancer Other aunt colon cancer Thyroid Disease Sister Ela Cavazos Breast Cancer Neg Hx Ovarian Cancer Neg Hx Relation Name Status Comments Father Aleksey chatterjee Maternal Aunt 1 Alive Maternal Aunt 2 Brionna Auguste Alive Mother Palma work Alive Other aunt Alive Sister Ela Cavazos Social History Tobacco Use Types Packs/Day Years Used Date Smoking Tobacco: Never Smokeless Tobacco: Never Tobacco Cessation:Counseling Given: Not Answered Alcohol Use Standard Drinks/Week Comments Not Currently 0 (1 standard drink = 0.6 oz pur e alcohol) rarely Feeling Safe Answer Date Recorded Do you worry about feeling s afe and happy with the people in your life? No 03/24/2024 Food Insecurity Answer Date Recorded Do you find you are eating l ess than you should because you can t pay for food? No 03/24/2024 Transportation Needs Answer Date Record ed Have you gone without health care because you didn t have a way to get there? Or worry about transportation for future doctor visits, miner pick medication, etc.? No 2024 Housing Stability Answer Date Recorded Do you worry you won t have a steady place to sleep or struggle to pay rent or mortgage? No 03/24/2024 Utility Needs Answer Date Recorded Do you have difficulty payin g for utility costs (electric, water or gas bills)? No 03/24/2024 Medication Needs Answer Date Recorded Have you skipped taking medi cation due to cost or worry you can t afford new medications? No 03/24/2024 Feeling Safe Answer Date Recorded Are you in a relationship wi th someone who hurts you emotionally and/or physically? 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 Gender Identity Female 04/29/2023 6:21 AM CDT Sexual Orientation Not on file Last Filed Vital Signs Vital Sign Reading Time Taken Comments Blood Pressure 112/60 09/30/2024 9:18 AM CDT Pulse 63 09/18/2024 3:56 PM CDT Temperature 36.2 C (97.1 F) 09/18/2024 3:56 PM CDT Respiratory Rate 16 09/18/2024 3:56 PM CDT Oxygen Saturation 100% 09/18/2024 3:56 PM CDT Inhaled Oxygen Concentration - - Weight 77.6 kg (171 lb) 09/30/2024 9:18 AM CDT Height 162.6 cm (5' 4 ) 09/30/2024 9:18 AM CDT Body Mass Index 29.35 09/30/2024 9:18 AM CDT Plan of Treatment Upcoming Encounters Date Type Department Care Team (Late st Contact Info) Description 11/04/2024 9:00 AM CDT Office Visit [facility] [place] [address] [place] [address] Susanne Maxwell FNP [address] [place] [address] 11/11/2024 10:30 AM CDT Office Visit [facility] [place] [address] [place] [address] Christopher Rodríguez MD [address] [place] [address] Health Maintenance Due Date Last Done Comments HPV VACCINES (1 - 3-dose series) 10/05/2014 HEPATITIS B VACCINES (1 of 3 - 19+ 3-dose series) 10/05/2018 HPV/Cotest (21-29) 10/05/2020 Preventative Visit-Managed Medicaid 07/13/202207/12 CERVICAL CANCER SCREENING 12/15/2023 PAP SMEAR 12/15/2023 12/14/2020 INFLUENZA VACCINE (#1) 2024 12/13/2017, 2017 DTAP/TDAP/TD VACCINES (2 - Td or Tdap) 04/29/2028 CHLAMYDIA SCREENING (ANNUAL) 11-24 YEARS Discontinued 09/30/2024, 11/22/2017 Procedures Procedure Name Priority Date/Time Associated Diagnosis Comments VAGINOSIS/VAGINITIS PANEL PLUS Routine 09/30/2024 9:36 AM CDT Vaginal irritation TELEMETRY REPORT 09/23/2024 10:1 5 AM CDT PROCEDURE PHOTOGRAPHS 09/23/2024 10:15 AM CDT GA ANES INSERT ENDOTRACHEAL AIRWAY Routine 09/18/2024 1:42 PM CDT GA CHROMOTUBATION OVIDUCT W/MATERIALS 09/18/2024 1:26 PM CDT Painful menstrual periods Secondary female infertility GA LAPS ABD PRTM&OMENTUM DX W/WO SPEC BR/WA SPX 09/18/2024 1:26 PM CDT Painful menstrual periods Secondary female infertility POC , URINE Routine 09/18/2024 12:44 PM CDT TYPE AND SCREEN Routine 09/15/2024 10:23 AM CDT Pre-op testing COMPREHENSIVE METABOLIC PANEL Routine 09/15/2024 10:23 AM CDT Pre-op testing CBC WITH DIFFERENTIAL Routine 09/15/2024 10:23 AM CDT Pre-op testing CERV/VAG CYTO AGE BASED SCREEN PAP W CT/NG Routine 12/14/2020 11:17 AM MOVABLE BULKHEAD INSTALLER Screening for cervical cancer from Last 3 Months or Most Recently Relevant to Health Maintenance Results * VAGINOSIS/VAGINITIS PANEL PLUS (09/30/2024 9:36 AM CDT) BACTERIAL VAGINOSIS NEGATIVE NEGATIVE [facility] LEANA SPECIES NOT DETECTED NOT DETECTED [facility] LEANA GLABRATA NOT DETECTED NOT DETECTED [facility] Comment: Leana species C. albicans, C. tropicalis, C. parapsilosis, and/or C. dubliniensis can be detected, but not differentiated, in the Leana spp. result. TRICHOMONAS VAGINALIS (TV), TMA NOT DETECTED NOT DETECTED [facility] CHLAMYDIA TRACHOMATIS RNA, TMA, UROGENITAL NOT DETECTED NOT DETECTED [facility] NEISSERIA GONORRHOEAE RNA, TMA, UROGENITAL NOT DETECTED NOT DETECTED [facility] Comment: For additional information, please refer to https://education.[employer]/faq/YAW809 (This link is being provided for information/ educational purposes only.) Test Performed at: [email or web address] [id number] [place] [phone] John Kingston MD Genital SPECIMEN FROM VAGINA / Unknown 09/30/2024 9:36 AM CDT 09/30/2024 1:28 PM CDT us Christopher Rodríguez MD MICROBIOLOGY - GENERAL ORDERABLE S Final Result [facility] [phone] [facility] [address] [address] [address] * PROCEDURE PHOTOGRAPHS (09/23/2024 10:15 AM CDT) us Provider Scanning PROCEDURE/MINOR SURGICAL ORDER [place] Final Result * TELEMETRY REPORT (09/23/2024 10:15 AM CDT) us Provider Scanning ECG ORDERABLES Final Result * GA ANES INSERT ENDOTRACHEAL AIRWAY (09/18/2024 1:42 PM CDT) Narrative Michelle Arroyo AA-C - 09/18/2024 1:42 PM CDT Michelle Arroyo AA-C 09/18/2024 1:57 PM Airway Date/Time: 09/18/2024 1:42 PM Location: OR Plan: elective intubation Patient Identity Confirmed by: Verbally with patient and armband Airway: not difficult Staffing Performed: PAPER TESTING SUPERVISOR/CAA Authorized by: Uche Rodriguez MD Performed by: Michelle Arroyo AA-C Indications and Patient Condition: Indications for Airway Management: Anesthesia Sedation Level: general anesthesia Preoxygenated: yes Patient Position: Sniffing Mask Difficulty Assessment: 1 - vent by mask Plan to extubate at end of case: Yes Final Airway Details: Final Airway Type: Endotracheal airway ETT Cuffed: Yes Cuff Volume (mL): 8 Technique Used for Successful ETT Placement: Direct laryngoscopy Devices/Methods Used in Placement: Anterior pressure/BURP, intubating stylet and LTA Blade Type: curved blade Blade Size: 3 ETT Size (mm): 7.0 Measured from: Teeth ETT to Teeth (cm): 21 Tube secured with: Tape Placement Verified by: auscultation, end tidal CO2 and chest rise Cormack-Lehane Classification: Grade I - full view of glottis Number of Attempts at Approach: 1 Additional Procedure Information: atraumatic and dentition unchanged Uche Rodriguez MD PROCEDURE/MINOR SURGICAL ORDERAB LES Final Result * POC , URINE (09/18/2024 12:44 PM CDT) HCG QUAL URINE Negative Negative 09/18/2024 12:44 PM CDT [facility] Urine 09/18/2024 12:4 4 PM CDT 09/18/2024 12:32 PM CDT Narrative [facility] - 09/18/2024 12:44 PM CDT Positive : Result is greater than or equal to 25 mIU/mL Negative: Result is less than 25 mIU/mL Invalid: Result is borderline or indeterminate,send to lab for serum test methodology. us Christopher Rodríguez MD POINT OF CARE TESTING Final Resu lt [facility] CLIA # [id number] [address] [address] * (ABNORMAL) CBC WITH DIFFERENTIAL (09/15/2024 10:23 AM CDT) WBC 7.1 4.5 - 11.0 K/uL 09/15/2024 11:24 AM CDT [facility] RBC 4.41 4.20 - 5.40 M/uL 09/15/2024 11:24 AM CDT [facility] HEMOGLOBIN 12.1 12.0 - 16.0 g/dL 09/15/2024 11:24 AM CDT [facility] HEMATOCRIT 36.9 36.0 - 46.0 % 09/15/2024 11:24 AM T [facility] MCV 83.7(L) 84.0 - 103.0 fL 09/15/2024 11:24 AM CDT [facility] MCH 27.4 27.0 - 34.0 pg 09/15/2024 11:24 AM CDT [facility] MCHC 32.8 30.0 - 35.0 g/dL 09/15/2024 11:24 AM CDT [facility] PLATELETS 244 140 - 440 K/uL 09/15/2024 11:24 AM T [facility] MPV 10.2 8.9 - 12.8 fL 09/15/2024 11:24 AM CDT [facility] RDW 13.8 11.0 - 14.5 % 09/15/2024 11:24 AM [facility] RDW-STDEV 42.5 37.0 - 54.0 fL 09/15/2024 11:24 AM [facility] NEUTROPHILS 72 42 - 75 % 09/15/2024 11:24 AM [facility] LYMPHOCYTES 19(L) 24 - 44 % 09/15/2024 11:24 AM [facility] MONOCYTES 7 2 - 10 % 09/15/2024 11:24 AM [facility] EOSINOPHILS 2 0 - 7 % 09/15/2024 11:24 AM [facility] BASOPHILS 1 0 - 1 % 09/15/2024 11:24 AM [facility] IMMATURE GRANULOCYTES 0 0 - 2 % 09/15/2024 11:24 AM [facility] NEUTROPHIL ABSOLUTE 5.06 2.00 - 8.00 K/uL 09/15/2024 11:24 AM [facility] LYMPHOCYTE ABSOLUTE 1.34 1.20 - 4.00 K/uL 09/15/2024 11:24 AM [facility] MONOCYTE ABSOLUTE 0.49 0.10 - 0.60 K/uL 09/15/2024 11:24 AM [facility] EOSINOPHIL ABSOLUTE 0.13 0.00 - 0.70 K/uL 09/15/2024 11:24 AM [facility] BASOPHILS ABSOLUTE 0.04 0.00 - 0.20 K/uL 09/15/2024 11:24 AM [facility] IMMATURE GRANULOCYTES ABSOLUTE 0.02 0.00 - 0.10 K/uL 09/15/2024 11:24 AM [facility] SMEAR REVIEWED: NA - Not Applicable 09/15/2024 11:24 AM [facility] Blood Venipuncture / Unknown 09/15/2024 10:23 AM CDT 09/15/2024 11:15 AM CDT us Christopher Rodríguez MD HEMATOLOGY ORDERABLES Final Resu lt Performing Organization Address [facility] Co de Phone Number [facility] CLIA # [id number] [address] [place] [address] * TYPE AND SCREEN (09/15/2024 10:23 AM CDT) ABO GROUP A 09/15/2024 12:09 PM CDT [facility] [place] RH (D) TYPE Positive 09/15/2024 12:09 PM CDT [facility] ANTIBODY SCREEN Negative 09/15/2024 12:09 PM CDT [facility] [place] Blood Venipuncture / Unknown 09/15/2024 10:23 AM CDT 09/15/2024 11:13 AM CDT Christopher Rodríguez MD BLOOD BANK ORDERABLES Edited Res ult - Final Performing Organization Address [facility] Co de Phone Number [facility] CLIA#[id number] [address] [place] [id number] [place] [address] * (ABNORMAL) COMPREHENSIVE METABOLIC PANEL (09/15/2024 10:23 AM CDT) SODIUM 137 136 - 145 mmol/L 09/15/2024 11:33 AM CDT [facility] POTASSIUM 3.9 3.5 - 5.1 mmol/L 09/15/2024 11:33 AM CDT [facility] CHLORIDE 106 98 - 107 mmol/L 09/15/2024 11:33 AM CDT [facility] CO2 21(L) 22 - 29 mmol/L 09/15/2024 11:33 AM CDT [facility] CALCIUM 9.6 8.6 - 10.0 mg/dL 09/15/2024 11:33 AM CDT [facility] BUN 11 6 - 20 mg/dL 09/15/2024 11:33 AM CDT [facility] CREATININE 0.84 0.51 - 0.95 mg/dL 09/15/2024 11:33 AM [facility] GLUCOSE 93 74 - 99 mg/dL 09/15/2024 11:33 AM [facility] TOTAL PROTEIN 7.2 6.4 - 8.3 g/dL 09/15/2024 11:33 AM [facility] ALBUMIN 4.2 3.5 - 5.2 g/dL 09/15/2024 11:33 AM [facility] BILIRUBIN TOTAL 0.4 0.0 - 1.0 mg/dL 09/15/2024 11:33 AM [facility] ALKALINE PHOSPHATASE 77 35 - 104 U/L 09/15/2024 11:33 AM [facility] AST 27 10 - 35 U/L 09/15/2024 11:33 AM [facility] ALT 42(H) <=35 U/L 09/15/2024 11:33 AM [facility] GFR >60 >=60 mL/min/1.7 3 sq meter 09/15/2024 11:33 AM [facility] Comment:eGFR calculated with 2020 CKD-EPI equation. Vegetarian diet, extremely high or low muscle mass, and may affect results. Cystatin C with Glomerular Filtration Rate is a suitable alternative for these patients. ANION GAP 10 9 - 20 mmol/L 09/15/2024 11:33 AM [facility] Blood Venipuncture / Unknown 09/15/2024 10:23 AM CDT 09/15/2024 11:16 AM CDT us Christopher Rodríguez MD CHEMISTRY ORDERABLES Final Resul t [facility] CLIA # [id number] Critical access hospital[address] [address] * CERV/VAG CYTO AGE BASED SCREEN PAP W CT/NG (12/14/2020 11:17 AM MOVABLE BULKHEAD INSTALLER) SEE NOTE [facility] Comment: This order for age-based cervical cancer and STI screening follows ACOG guidelines(PB 168, 140, ABI653). See individual assays for performing site location. CLINICAL INFORMATION [facility] Comment:Information not prov ided LAST MENSTRUAL PERIOD [facility] Comment:INFORMATION NOT PROV IDED PREV PAP: [facility] Comment:INFORMATION NOT PROV IDED PREV BX: [facility] Comment:INFORMATION NOT PROV IDED SOURCE [facility] Comment:Information not prov ided ADEQUACY: [facility] Comment: Satisfactory for evaluation. Endocervical/transformation zone component present. Age and/or menstrual status not provided PAP INTERP [facility] Comment:Negative for intraep ithelial lesion or malignancy. COMMENT (PAP TEST) [facility] Comment: This Pap test has been evaluated with computer assisted technology. PLOW MECHANIC: [facility] Comment: NOY CARRASCO(ASCP) CT screening location: [place] [address] [place] [address] SEE NOTE [facility] Comment: EXPLANATORY NOTE: The Pap is a screening test for cervical cancer. It is not a diagnostic test and is subject to false negative and false positive results. It is most reliable when a satisfactory sample, regularly obtained, is submitted with relevant clinical findings and history, and when the Pap result is evaluated along with historic and current clinical information. C TRAC RNA NOT DETECTED NOT DETECTED [facility] N.GONORRHOEAE RNA, TMA NOT DETECTED NOT DETECTED [facility] SEE NOTE [facility] Comment: The analytical performance characteristics of this assay, when used to test SurePath(TM) specimens have been determined by [facility]. The modifications have not been cleared or approved by the FDA. This assay has been validated pursuant to the CLIA regulations and is used for clinical purposes. For additional information, please refer to https://education.Face[employer].Blushr/faq/XTX000 (This link is being provided for information/ educational purposes only.) Test Performed at: [facility] [id number] [place] [address] Kurtis Raphael D.O., MPH SL Genital SWAB OF ENDOCERVIX / Unknown 12/14/2020 11:17 AM MOVABLE BULKHEAD INSTALLER 12/15/2020 9:42 AM MOVABLE BULKHEAD INSTALLER us Carlotta La DO PATHOLOGY/CYTOLOGY ORDERABL ES Final Result [facility] [address] [place] [address] from Last 3 Months or Most Recently Relevant to Health Maintenance Insurance [facility] MEDICAID RX INFOCROSSING Medicaid Advance Directives For more information, please contact: [phone] * Full Code (Latest Code Status on File) Date Activated Date Inactivated Comments 09/18/2024 2:46 PM 09/18/2024 11:04 PM * Full Code Date Activated Date Inactivated Comments 09/18/2024 1:40 PM 09/18/2024 2:46 PM * Full Code Date Activated Date Inactivated Comments 09/18/2024 12:03 PM 09/18/2024 1:40 PM * Full Code Date Activated Date Inactivated Comments 08/08/2023 2:35 PM 08/08/2023 6:13 PM * Full Code Date Activated Date Inactivated Comments 04/20/2021 6:51 PM 04/22/2021 1:36 PM Care Teams Ornamenter Relationship Specialty Start Date End Date Mo Bingham DO [address] [address] PCP - General 05/10/20
--- OUTSIDE RECORDS SUMMARY | 2024-10-15 10:54 | XMS_ITS | Encounter Summary ---
Author Organization [facility] Address [address] [place] [address] Care Team Providers Care Roller Turner Name Role Phone Mo Bingham DO Primary Care Provider [phone] Reason for Referral * Radiology Services (Urgent) - Closed Specialty Diagnoses / Procedures Referred By Contac t Referred To Contact Radiology Diagnoses Urinary frequency Pelvic pain in female Procedures US PELVIS COMPLETE US PELVIS COMPLETE Mo Bingham DO [address] [place] [phone] Phone: tel: fax: [facility]ound [address] 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 Encounter Details Date Type Department Care Team (Late st Contact Info) Description 04/08/2020 Ancillary Orders [facility] [address] [place] [phone] Mo Bingham DO [address] [place] [phone] Urinary frequency; Pelvic pain in female Social History Tobacco Use Types Packs/Day Years Used Date Smoking Tobacco: Never Smokeless Tobacco: Never Alcohol Use Standard Drinks/Week Comments No 0 (1 standard drink = 0.6 oz pur e alcohol) Comments No Sex and Gender Information Value Date Recorded Sex Assigned at Not on file Legal Sex Female 9:21 AM CDT Gender Identity Not on file Sexual Orientation Not on file COVID-19 Exposure Response Date Recorded In the last month, have you been in contact with someone who was confirmed or suspected to have Coronavirus / COVID-19? No / Unsure 04/09/2020 8:13 AM OLIVING MACHINE OPERATOR documented as of this encounter Plan of Treatment Not on file documented as of this encounter Results * US PELVIS COMPLETE (04/09/2020 10:08 AM OLIVING MACHINE OPERATOR) Anatomical Region Laterality Modality Pelvis Ultrasound 04/09/2020 10:0 8 AM OLIVING MACHINE OPERATOR Impressions 04/09/2020 12:00 PM OLIVING MACHINE OPERATOR IMPRESSION: Please see below. Exam: US PELVIS COMPLETE Date/Time of Exam: 04/09/2020 10:08 AM Reason For Exam: See Diagnosis. Diagnosis: Urinary frequency; Pelvic pain in female. Findings: The uterus measures 7.7 x 2.8 x 4.2 cm with endometrial thickness of 5 mm. Ovaries unremarkable. No free fluid seen in the pelvis. IMPRESSION: No significant abnormality. [id number] Narrative Procedure Note Wilmer Salazar MD - 04/09/2020 IMPRESSION: Please see below. Exam: US PELVIS COMPLETE Date/Time of Exam: 04/09/2020 10:08 AM Reason For Exam: See Diagnosis. Diagnosis: Urinary frequency; Pelvic pain in female. Findings: The uterus measures 7.7 x 2.8 x 4.2 cm with endometrial thickness of 5 mm. Ovaries unremarkable. No free fluid seen in the pelvis. IMPRESSION: No significant abnormality. [id number] Mo Bingham DO US ORDERABLES Final Result documented in this encounter Visit Diagnoses Diagnosis Urinary frequency Pelvic pain in female Unspecified symptom associated with female genital organs Urinary frequency Pelvic pain in female Unspecified symptom associated with female genital organs documented in this encounter Care Teams Roller Turner Relationship Specialty Start Date End Date Mo Bingham DO [address] [place] [address] PCP - General Family Practice 04/16/20 documented as of this encounter
--- OUTSIDE RECORDS SUMMARY | 2024-10-15 10:54 | XMS_ITS | Encounter Summary ---
Author Organization [facility] Address [address] [place] [address] Care Team Providers Care Formula Mixer Name Role Phone PalmaMo eric Primary Care Provider [phone] Encounter Details Date Type Department Care Team (Late st Contact Info) Description 10/01/2024 Results Follow-Up [facility] OBG[facility] [place] [address] [facility] [address] [place] [address] Christopher Rodríguez MD [address] [facility] [address] [place] [address] VAGINOSIS/VAGINITIS PANEL PLUS Social History Tobacco Use Types Packs/Day Years Used Date Smoking Tobacco: Never Smokeless Tobacco: Never Alcohol Use Standard Drinks/Week Comments Not Currently [...] worry about transportation for future doctor visits, medicinal plant picker medication, etc.? 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 Gender Identity Female 04/29/2023 6:21 AM CDT Sexual Orientation Not on file documented as of this encounter Plan of Treatment Upcoming Encounters Date Type Department Care Team (Late st Contact Info) Description 11/04/2024 9:00 AM CDT Office Visit [facility] MARIANN [place] [address] [place] [address] Susanne Maxwell FNP [address] [facility] [address] [place] [address] 11/11/2024 10:30 AM CDT Office Visit [facility] MARIANN [place] [address] [place] [address] Christopher Rodríguez MD [address] [facility] [address] [place] [phone] documented as of this encounter Visit Diagnoses Not on filedocumented in this encounter Additional Health Concerns Assessment Noted Time PHQ-9 Depression Total Score: 6 07/13/19 22 11:00 AM CDT documented as of this encounter Care Teams Formula Mixer Relationship Specialty Start Date End Date Mo Bingham DO [address] [place] [address] PCP - General 05/10/20 documented as of this encounter
--- OUTSIDE RECORDS SUMMARY | 2024-10-15 10:54 | XMS_ITS | Clinical Summary ---
Author Organization [facility] Address [address] [place] [address] [place] [address] Phone Care Team Providers Care Driver Trainee Name Role Phone Unavailable Primary Care Provider Unavailabl e Allergies Active Allergy Reactions Criticality Noted Date Comments Alpha-Gal (Npjwzqfnz-Zmbar-6,3-Galactose) 10/05/2022 Medications dicyclomine (Bentyl) 20 mg tablet Take 20 mg by mouth 4 (four) times a day. 08/14/2022 Active EPINEPHrine (Epipen) 0.3 mg/0.3 mL injection syringeIndicati ons:Allergy to alpha-gal Inject 0.3 mL (0.3 mg total) into the shoulder, thigh, or buttocks if needed for anaphylaxis. Call 911 after use. 2 each 5 10/11/2022 Active Family History Medical History Relation Comments No Known Problems Father No Known Problems Mother Relation Status Comments Father Alive Mother Alive Social History Tobacco Use Types Packs/Day Years Used Date Smoking Tobacco: Never Smokeless Tobacco: Never Tobacco Cessation:Counseling Given: Not Answered Alcohol Use Standard Drinks/Week Comments Never 0 (1 standard drink = 0.6 oz pur e alcohol) PHQ-2 Answer Date Recorded Patient Health Questionnaire-2 Score 0 10/05/2022 Comments Unknown Sex and Gender Information Value Date Recorded Sex Assigned at Female 09/07/2022 11:15 AM CDT Legal Sex Female 10:02 AM CDT Gender Identity Female 09/07/2022 11:15 AM CDT Sexual Orientation Straight 09/07/2022 11 :15 AM CDT Last Filed Vital Signs Vital Sign Reading Time Taken Comments Blood Pressure 108/71 10/05/2022 1:06 PM CDT Pulse 71 10/05/2022 1:06 PM CDT Temperature 36.7 C (98.1 F) 10/05/2022 1:06 PM CDT Respiratory Rate 20 10/05/2022 1:06 PM CDT Oxygen Saturation 97% 10/05/2022 1:06 PM CDT Inhaled Oxygen Concentration - - Weight 66.4 kg (146 lb 4.8 oz) 10/05/2022 1:06 P M CDT Height 153.7 cm (5' 0.5 ) 10/05/2022 1:06 PM CDT Body Mass Index 28.1 10/05/2022 1:06 PM CDT Plan of Treatment Health Maintenance Due Date Last Done Comments MMR Vaccines (1 of 1 - Standard series) 10/05/2000 Varicella Vaccines (1 of 2 - 13+ 2-dose series) 10/05/2012 HPV Vaccines (1 - 3-dose series) 10/05/2014 Depression Screening 10/05/2017 Social Drivers of Health (SDoH) 10/05/2017 DTaP,Tdap,and Td Vaccines (2 - Td or Tdap) 05/27/2018 04/29/2018 Hepatitis B Vaccines (1 of 3 - 19+ 3-dose series) 10/05/2018 Pap Smear 10/05/2020 COVID-19 Vaccine (1 - 2023-2 5 season) 2024 Influenza Vaccine (#1) 2024 8, 11/27/2017 Pneumococcal Vaccine: 50+ Years (1 of 1 - PCV) 10/05/2049 Zoster Vaccines (1 of 2) 10/05/2049 RSV Vaccines (1 - 1-dose 75+ series) 10/05/2074 HIB Vaccines Aged Out No longer eligi ble based on patient's age to complete this topic Hepatitis A Vaccines Aged Out No long er eligible based on patient's age to complete this topic IPV Vaccines Aged Out No longer eligi ble based on patient's age to complete this topic Meningococcal B Vaccine Aged Out No l onger eligible based on patient's age to complete this topic Meningococcal Vaccine Aged Out No mauro brii eligible based on patient's age to complete this topic Pneumococcal Vaccine Aged Out No long er eligible based on patient's age to complete this topic Rotavirus Vaccines Aged Out No longer eligible based on patient's age to complete this topic Insurance [place] [employer]
--- OUTSIDE RECORDS SUMMARY | 2024-10-15 10:54 | XMS_ITS | Encounter Summary ---
Author Organization [facility] Address [address] [place] [address] Care Team Providers Care Script Supervisor Name Role Phone Mo Bingham Primary Care Provider [phone] Encounter Details Date Type Department Care Team (Late st Contact Info) Description 03/03/2021 Telephone [facility] Labor and Delivery [address] [place] [address] Carlotta La DO NO ADDRESS ON FILE Social History Tobacco Use Types Packs/Day Years Used Date Smoking Tobacco: Never Smokeless Tobacco: Never Alcohol Use Standard Drinks/Week Comments No 0 (1 standard drink = 0.6 oz pur e alcohol) Comments Yes Sex and Gender Information Value Date Recorded Sex Assigned at Female 04/29/2023 6:21 AM CDT Legal Sex Female 1:51 PM 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 No / Unsure 02/21/2021 2:38 PM BOILERHOUSE MECHANIC documented as of this encounter Miscellaneous Notes * Telephone Encounter - Krissy Bland RN - 03/03/2021 7:58 PM CST Triage Nurse Call 03/03/2021 7:58 PM Dina Ann Current Physician: Dr. Carlotta La Estimated Date of Delivery: 05/11/21 Gestational Age: 30w1d Reason for Call: Decreased FM, Ctx Normal movement: no Contractions Present: yes Leaking Present: denies Vaginal Bleeding: no [place]: N/A Last Vaginal Exam: Complications with : Covid + Relevant Medical History: Active Problems: * No active hospital problems. * Patient Active Problem List Diagnosis Code ??? Hyperemesis gravidarum O21.0 ??? Encounter for supervision of normal first in first trimester Z34.01 ??? Abnormal weight loss R63.4 ??? Abdominal pain, acute, right upper quadrant R10.11 ??? 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 Generalized anxiety disorder F41.1 ??? 24 weeks gestation of Z3A.24 ??? affected by growth restriction O36.5990 Past Medical History: Diagnosis Date ??? Anxiety ??? Ovarian cyst Advice Given: Call to triage w/ c/o decreased FM. Pt also states she has irregular UC nd is uncomfortable when walking. Pt advised how to do FKC. Advised to come in if UC are 10 min apart or closer for 2 hrs due to gest age. Pt verbalized understanding. ERHOUSE MECHANIC documented in this encounter Plan of Treatment Upcoming Encounters Date Type Department Care Team (Late st Contact Info) Description 11/04/2024 9:00 AM CDT Office Visit [facility] MARIANN [place] [address] [place] [address] Susanne Maxwell, GERALD [address] [place] [address] [place] [address] 11/11/2024 10:30 AM CDT Office Visit [facility] OBGYN [place] [address] [place] [address] Christopher Rodríguez MD [address] [place] [address] documented as of this encounter Visit Diagnoses Not on filedocumented in this encounter Care Teams Script Supervisor Relationship Specialty Start Date End Date Mo Bingham DO [address] [place] [phone] PCP - General 05/10/20 documented as of this encounter
--- OUTSIDE RECORDS SUMMARY | 2024-10-15 10:54 | XMS_ITS | Encounter Summary ---
Author Organization [facility] Address [address] [place] [address] Care Team Providers Care Bench Hand Machine Name Role Phone Mo Bingham Primary Care Provider [phone] Reason for Visit * Reason Onset Date Comments Abdominal Cramping 01/28/2021 Encounter Details Date Type Department Care Team (Late st Contact Info) Description 01/28/2021 Telephone [facility] Labor and Delivery [address] [place] [address] Carlotta La DO NO ADDRESS ON FILE Abdominal Cramping Social History Tobacco Use Types Packs/Day Years Used Date Smoking Tobacco: Never Smokeless Tobacco: Never Alcohol Use Standard Drinks/Week Comments No 0 (1 standard drink = 0.6 oz pur e alcohol) Comments Yes Sex and Gender Information Value Date Recorded Sex Assigned at Female 04/29/2023 6:21 AM CDT Legal Sex Female 1:51 PM TRAY CHECKER Gender Identity Female 04/29/2023 6:21 AM CDT Sexual Orientation Not on file COVID-19 Exposure Response Date Recorded In the last month, have you been in contact with someone who was confirmed or suspected to have Coronavirus / COVID-19? No / Unsure 01/31/2021 11:14 AM TRAY CHECKER documented as of this encounter Miscellaneous Notes * Telephone Encounter - Cat Velasquez RN - 01/28/2021 3:11 AM TRAY CHECKER Triage Nurse Call 01/28/2021 3:11 AM Dina Ann Current Physician: Dr. Carlotta La Estimated Date of Delivery: 05/11/21 Gestational Age: 25w2d Reason for Call: Pt currently in [facility] in L&D triage being assessed for PTL. Ptstates they think I'm crazy here. I'm having ctx every 10 min and They aren't doing anything and Ihave a hx of PTL The nurse is talking to the Dr now. Normal movement: yes Contractions Present: yes Leaking Present: denies Vaginal Bleeding: no [place]: No Last Vaginal Exam: N/A Complications with : denies Relevant Medical History: Active Problems: * No [...] F41.1 ??? 24 weeks gestation of Z3A.24 Past Medical History: Diagnosis Date ??? Anxiety ??? Ovarian cyst Cat Velasquez RN Advice Given: Stay in [facility] and let them finish assessing/treating you. If you don't feel confident in their care then you are welcome to come to [facility] for assessment. CHECKER documented in this encounter Plan of Treatment Upcoming Encounters Date Type Department Care Team (Late st Contact Info) Description 11/04/2024 9:00 AM CDT Office Visit [facility] [facility] [address] [facility] [address] [place] [address] Susanne Maxwell FNP [address] [facility] [address] [place] [address] 11/11/2024 10:30 AM CDT Office Visit [facility] [place] [facility] [address] [facility] [address] [place] [address] Christopher Rodríguez MD [address] [facility] [address] [place] [address] documented as of this encounter Visit Diagnoses Not on filedocumented in this encounter Care Teams Bench Hand Machine Relationship Specialty Start Date End Date Mo Bingham DO [address] [place] [address] PCP - General 05/10/20 documented as of this encounter
--- OUTSIDE RECORDS SUMMARY | 2024-10-15 10:54 | XMS_ITS | Clinical Summary ---
Author Organization [facility] Address [address] [place] [address] [place] [address] Phone Care Team Providers Care Demolitionist Name Role Phone Mo Bingham DO Primary Care Provider [phone] Allergies No known active allergies Medications ibuprofen (MOTRIN) 200 mg tablet Take 200 mg by mouth every 6 hours as needed. Active ondansetron (Zofran ODT) 8 mg Tablet, Rapid Dissolve Dissolve 1 tablet on top of tongue then swallow with saliva every 8 hours as needed for nausea or vomiting 30 Tablet 07/27/2020 Active Active Problems Problem Noted Date Diagnosed Date Insomnia due to other mental disorder 05/10/2020 Generalized anxiety disorder 05/10/2020 Abdominal pain, acute, right upper quadrant 08/06 Abnormal weight loss 12/09/2017 Hyperemesis gravidarum 12/03/2017 Encounter for supervision of normal first in first trimester 12/03/2017 Resolved Problems Problem Noted Date Diagnosed Date Resolved Date Encounter for initial prescr iption of vaginal ring hormonal contraceptive 11/28/2016 11/22/2017 Immunizations Immunization Administration Dates Next Due INFLUENZA VACCINE QUADRIVALENT 3 YR UP PF IM 09/2017 Family History Medical History Relation Name Comments Cancer Other aunt colon cancer Thyroid Disease Sister Ela Cavazos Relation Name Status Comments Other aunt Alive Sister Ela Cavazos Social [...] on file Sexual Orientation Not on file Last Filed Vital Signs Vital Sign Reading Time Taken Comments Blood Pressure 92/66 07/27/2020 9:49 AM CDT Pulse 96 07/27/2020 9:49 AM CDT Temperature 36.1 C (96.9 F) 07/27/2020 9:49 AM CDT Respiratory Rate 14 07/27/2020 9:49 AM CDT Oxygen Saturation 99% 07/27/2020 9:49 AM CDT Inhaled Oxygen Concentration - - Weight 63 kg (138 lb 12.8 oz) 07/27/2020 9:49 AM CDT Height 162.6 cm (5' 4 ) 07/27/2020 9:49 AM CDT Body Mass Index 23.82 07/27/2020 9:49 AM CDT Plan of Treatment Health Maintenance Due Date Last Done Comments HPV VACCINES (1 - 3-dose series) 10/05/2014 DTAP/TDAP/TD VACCINES (1 - Tdap) 10/05/2018 HEPATITIS B VACCINES (1 of 3 - 19+ 3-dose series) 10/05/2018 CERVICAL CANCER SCREENING 10/05/2020 HPV/Cotest (21-29) 10/05/2020 PAP SMEAR 10/05/2020 Preventative Visit- Commercial 02/06/2024 07/12/2021 INFLUENZA VACCINE (#1) 2024 11/12/2018, 2017 CHLAMYDIA SCREENING (ANNUAL) 11-24 YEARS Discontinued 11/22/2017 Procedures Procedure Name Priority Date/Time Associated Diagnosis Comments GC/CHLAMYDIA, GENITAL Routine 11/22/2017 3:57 PM CDT Vaginal discharge Encounter for supervision of normal first in first trimester from Last 3 Months or Most Recently Relevant to Health Maintenance Results * GC/CHLAMYDIA, GENITAL (11/22/2017 3:57 PM CDT) CHLAMYDIA DNA AMPLIFICATION NOT DETECTED Not Detected 11/23/2017 12:31 AM CDT [facility] GC DNA AMPLIFICATION NOT DETECTED Not Detected 11/23/2017 12:31 AM CDT [facility] Genital SWAB OF ENDOCERVIX / Unknown Collection / Unknown 11/22/2017 3:57 PM CDT 11/22/2017 8:32 PM CDT Narrative [facility] - 11/23/2017 12:31 AM CDT Results should not be used for the evaluation of suspected sexual abuse or for other medico-legal indications. The only legally accepted results are from culture. Results cannot be used to assess therapeutic success or failure since nucleic acids may persist following antimicrobial therapy. Staci Ott MD [employer] ORDERABLES COM Final Result [facility] CLIA# [id number] [address] [place] [address] from Last 3 Months or Most Recently Relevant to Health Maintenance Insurance [place] [address] [place] [address] Care Teams Demolitionist Relationship Specialty Start Date End Date Mo Bingham DO [address] [place] [address] PCP - General Family Practice 04/16/20
[2024-10-15 11:10] VITALS: BP 145/91; PULSE 86; RESP 18; TEMP 36.6; O2SAT 100; BMI 29.2
--- NOTE | 2024-10-15 11:11 | US_ITS ---
WS: [id number] EARLY OBSTETRICAL ULTRASOUND (<14 WEEKS). HISTORY: abd pain, early COMPARISON: None available. Single intrauterine gestational sac is identified. Cardiac activity at 131 BPM. [place]-rump length measures 0.9 cm which corresponds to a gestation of 6w6d. Normal-appearing yolk sac and amnion demonstrated. No subchorionic hemorrhage. No free fluid. RIGHT ovary measures 2.5 x 2.1 x 1.8 cm. LEFT ovary measures 2.9 x 2.3 x 1.7 cm. Uterus is retroverted. US/US OB <= 14 weeks fetus [id number] IMPRESSION: 1. Single intrauterine gestation of 6w6d with an EDC of 06/04/2025. 2. Normal cardiac activity.
--- NOTE | 2024-10-15 11:19 | W.ED.NAVMDI ---
HPI - Nausea/Vomiting/Diarrhea General: Chief complaint: Nausea/Vomiting/Diarrhea Stated complaint: n/v, abd cramping, 7 weeks preg Time Seen by Provider: 10/15/24 11:01 History of Present Illness: 24-year-old female who presents emergency room with nausea, vomiting, lower abdominal cramping and back pain. She states she think she is about 7 weeks . She says she had a procedure done recently where they put dye into her tubes because she was trying to get before she knew she was . No lateralizing adnexal pain. No fevers. No vaginal bleeding or vaginal discharge. Related Data Previous Rx's ?Medication ?Instructions ?Recorded qrxbyvzukkwthdn-khmrvuxzuihocgs-SG 5 ml PO Q6H PRN cold symptoms #118 05/02/23 2 mg-30 mg-10 mg/5 mL oral syrup mL (Bromfed DM) oseltamivir 75 mg capsule (Tamiflu) 75 mg PO BID 5 days #10 caps 05/02/23 amoxicillin 500 mg tablet 500 mg PO BID 10 days #20 tabs 05/08/23 ondansetron 8 mg disintegrating 8 mg PO Q6H #14 tabs 10/15/24 tablet promethazine 25 mg rectal 25 mg MA Q6H PRN nausea and 10/15/24 suppository vomiting #12 ea Allergies Allergy/AdvReac Type Severity Reaction Status Date / Time No Known Allergies Allergy Verified 11/20/23 08:23 Review of Systems Narrative: Constitutional symptoms: Negative except as documented in HPI. Skin symptoms: Negative except as documented in HPI. Eye symptoms: Negative except as documented in HPI. ENMT symptoms: Negative except as documented in HPI. Respiratory symptoms: Negative except as documented in HPI. Cardiovascular symptoms: Negative except as documented in HPI. Gastrointestinal symptoms: Negative except as documented in HPI. Genitourinary symptoms: Negative except as documented in HPI. Musculoskeletal symptoms: Negative except as documented in HPI. Neurologic symptoms: Negative except as documented in HPI. Psychiatric symptoms: Negative except as documented in HPI. Endocrine symptoms: Negative except as documented in HPI. PFSH ED PFSH: Family History (Updated 11/20/23 @ 08:27 by Dulce Maria Cavazos LPN) Denies family history of Colon cancer Ovarian cancer Prostate cancer Diabetes Heart disease Breast cancer Hypertension Uterine cancer Thyroid disease Stroke Social History (Updated 11/20/23 @ 08:28 by Dulce Maria Cavazos LPN) Smoking and tobacco/nicotine status: current some day tobacco/nicotine user Female Reproductive History: Spontaneous abortions: No Physical Exam Narrative: EXAM NARRATIVE: General: Alert, no acute distress. Skin: Warm, dry. Head: Normocephalic, atraumatic. Neck: Supple, trachea midline. Eye: Extraocular movements are intact. Ears, nose, mouth and throat: mucosa moist. Cardiovascular: Regular, Normal peripheral perfusion. Respiratory: Lungs are clear to auscultation, respirations are non-labored, breath sounds are equal, Symmetrical chest wall expansion. Gastrointestinal: Soft, Nontender, Non distended Musculoskeletal: Normal ROM, no deformity. Neurological: Alert and oriented, No focal neurological deficit observed. Psychiatric: Cooperative, appropriate mood & affect. Course Vital Signs: Vital signs: Vital Signs Temperature 97.8 F 10/15/24 11:10 Pulse Rate 65 10/15/24 12:18 Respiratory Rate 18 10/15/24 11:10 Blood Pressure 123/77 10/15/24 12:18 Pulse Oximetry 100 10/15/24 12:18 Oxygen Delivery Me thod Room Air 10/15/24 12:18 MDM - Nausea/Vomiting/Diarrhea Medical Decision Making Medical decision making: Differential diagnosis for this patient with abdominal pain including but not limited to and based on the above HPI, review of systems and physical exam: Urinary tract infection. Appendicitis. Cholecystitis. Dehydration. Renal failure. Gastroenteritis. Orders placed to evaluate differential diagnosis based on the above differential, HPI and physical exam Lab Review: Laboratory results were reviewed and interpreted by myself the emergency room physician. No leukocytosis. No anemia. No renal failure. Urinalysis is negative for infection. Ultrasound of fetus: Single intrauterine gestation of about 6 weeks 6 days. Normal cardiac activity with a heart rate of 131. This was reviewed and interpreted by myself the emergency room physician. I also reviewed the radiology report. hCG is appropriate around 95,000. I reviewed the patient's medical record. Reexamination: Patient remained stable. No increased work of breathing. No altered mental status. No focal motor deficits. Assessment and plan: Abdominal pain in early - Discharged home - Discussed plan with patient. Answered any questions. - Evaluation and treatment of this problem were appropriate in the emergency setting. Lab Data 10/15/24 11:14 10/15/24 11:14 Radiology Impressions Ultrasound 10/15/24 11:11 IMPRESSION: 1. Single intrauterine gestation of 6w6d with an EDC of 06/04/2025. 2. Normal cardiac activity. Laboratory Results WBC 9.68 10^3/uL (3.29-11.43) 10/15/24 11:14 RBC 4.53 10^6/uL (3.85-5.65) 10/15/24 11:14 Hgb 12.70 g/dL (11.27-16.99) 10/15/24 11:14 Hct 38.7 % (36-47) 10/15/24 11:14 MCV 85.4 fl (85-98) 10/15/24 11:14 MCH 28.0 pg (27-33) 10/15/24 11:14 MCHC 32.8 g/dL (30-55) 10/15/24 11:14 RDW 13.6 % (12.1-15.1) 10/15/24 11:14 Plt Count 258 10^3/cmm (157-399) 10/15/24 11:14 MPV 10.1 fL (7.4-10.4) 10/15/24 11:14 Neut % (Auto) 76.8 % 10/15/24 11:14 Lymph % (Auto) 15.6 % 10/15/24 11:14 [place] % (Auto) 5.0 % 10/15/24 11:14 Eos % (Auto) 1.9 % 10/15/24 11:14 Baso % (Auto) 0.4 % 10/15/24 11:14 Neut # (Auto) 7.44 10^3/uL (1.8-7.7) 10/15/24 11:14 Lymph # (Auto) 1.5 10^3/uL (0.8-4.8) 10/15/24 11:14 [place] # (Auto) 0.5 10^3/uL (0.2-0.9) 10/15/24 11:14 Eos # (Auto) 0.2 10^3/uL (0.0-0.8) 10/15/24 11:14 Baso # (Auto) 0.0 10^3/uL (0.0-0.1) 10/15/24 11:14 Nucleated RBC % (auto) 0 % 10/15/24 11:14 Nucleated RBCs # 0.0 /100WBC 10/15/24 11:14 Sodium 138 mmol/L (136-145) 10/15/24 11:14 Potassium 3.7 mmol/L (3.5-5.1) 10/15/24 11:14 Chloride 104 mmol/L (98-107) 10/15/24 11:14 Carbon Dioxide 23 mmol/L (22-29) 10/15/24 11:14 Anion Gap 14.7 (5-19) 10/15/24 11:14 BUN 5 mg/dL (6-20) L 10/15/24 11:14 Creatinine 0.6 mg/dL (0.5-0.9) 10/15/24 11:14 GFR Calculation 121.8 mL/min (90-130) 10/15/24 11:14 Glucose 104 mg/dL (65-115) 10/15/24 11:14 Calculated Osmolality 284 mOsm/kg (285-295) L 10/15/24 11:14 Calcium 9.5 mg/dL (8.5-10.5) 10/15/24 11:14 Total Bilirubin 0.4 mg/dL (0.15-1.2) 10/15/24 11:14 AST 15 U/L (0-32) 10/15/24 11:14 ALT 18 U/L (0-33) 10/15/24 11:14 Alkaline Phosphatase 86 U/L (35-105) 10/15/24 11:14 Total Protein 7.7 g/dL (6.6-8.7) 10/15/24 11:14 Albumin 4.5 g/dL (3.5-5.2) 10/15/24 11:14 Globulin 3.2 g/dL (1.3-4.6) 10/15/24 11:14 HCG, Qual Positive (Negative) H 10/15/24 11:14 Ser , Semi-Qnt 65385.00 mIU/mL 10/15/24 11:14 Urine Color Yellow (Yellow) 10/15/24 11:06 Urine Appearance Cloudy (CLEAR) A 10/15/24 11:06 Urine pH 6.0 (5-7) 10/15/24 11:06 Ur Specific [place] 1.006 (1.005-1.030) 10/15/24 11:06 Urine Protein Negative (Negative) 10/15/24 11:06 Urine Glucose (UA) Negative (Normal) 10/15/24 11:06 Urine Ketones Negative (Negative) 10/15/24 11:06 Urine Blood Negative (Negative) 10/15/24 11:06 Urine Nitrate Negative (Negative) 10/15/24 11:06 Urine Bilirubin Negative (Negative) 10/15/24 11:06 Urine Urobilinogen 0.2 mg/dL (Negative) 10/15/24 11:06 Ur Leukocyte Esterase Trace (Negative) A 10/15/24 11:06 Urine RBC 0-2 /hpf (0-2) 10/15/24 11:06 Urine WBC 0-5 /hpf (0-5) 10/15/24 11:06 Ur Squamous Epith Cells 0-5 /hpf (0-5) 10/15/24 11:06 Amorphous Sediment Not Reportable 10/15/24 11:06 Urine Bacteria None seen /hpf (NONE) 10/15/24 11:06 Hyaline Casts 0-4 /lpf H 10/15/24 11:06 All radiology interpretation(s) finalized by discharge Discharge Plan Discharge Patient Disposition: Home Clinical Impression: Abdominal pain affecting Condition: Stable Prescriptions: New promethazine 25 mg suppository 25 mg MA Q6H PRN (Reason: nausea and vomiting) Qty: 12 0RF ondansetron 8 mg tablet,disintegrating 8 mg PO Q6H Qty: 14 0RF Rx Instructions: Take 1/2-1 tab every 6 hours as needed for nausea and vomiting No Action [id number]-[id number]-FA [Bromfed DM] 2-30-10 mg/5 mL syrup 5 ml PO Q6H PRN (Reason: cold symptoms) Qty: 118 0RF oseltamivir [Tamiflu] 75 mg capsule 75 mg PO BID 5 Days Qty: 10 0RF amoxicillin 500 mg tablet 500 mg PO BID 10 Days Qty: 20 0RF Discharge Orders: Discharge ED (Routine); Ordered 10/15/24 Ordered By: Suzy Roper Referrals: Valerie Vanegas [Primary Care Provider, Family Practice] Patient Instructions: Abdominal Pain in (ED), Opioid Safety, Pain Management, Patient Portal & Viviana Instructions Activity Restrictions/Additional Instructions: [facility] You have been screened and evaluated and felt safe for discharge. Health conditions do change or evolve sometimes and as such it is important that you follow up with your Primary Doctor to be re checked, 3-5 days is a general good time frame for follow up. You are always welcome to return to the ED for re assessment if your symptoms are worsening or you have new concerns Print Language: Cymraes Coding Level of Care Code ED Net Developer Consultant for Mikaela Yousif
[2024-10-15 11:20] LABS: Glucose Urine UA Negative (Normal); Nitrate Urine Negative (Negative); Specific Gravity, Urine 1.006 (1.005-1.030)
[2024-10-15 11:26] LABS: Hematocrit 38.7 % (36-47); Hemoglobin 12.70 g/dL (11.27-16.99); Mean Corpuscular HGB Conc 32.8 g/dL (30-55); Mean Corpuscular Hemoglobin 28.0 pg (27-33); Mean Corpuscular Volume 85.4 fl (85-98); Nucleated Red Blood Cells % 0 %; Platelet Count 258 10^3/cmm (157-399); Red Blood Count 4.53 10^6/uL (3.85-5.65); White Blood Count 9.68 10^3/uL (3.29-11.43)
[2024-10-15 11:30] VITALS: PULSE 83; O2SAT 99
[2024-10-15 11:35] LABS: HCG, Serum Qual Positive (Negative)
[2024-10-15 12:08] LABS: Alanine Aminotransferase 18 U/L (0-33); Albumin Level 4.5 g/dL (3.5-5.2); Alkaline Phosphatase 86 U/L (35-105); Anion Gap 14.7 (5-19); Aspartate Amino Transferase 15 U/L (0-32); Blood Urea Nitrogen 5 mg/dL (6-20); Calcium 9.5 mg/dL (8.5-10.5); Carbon Dioxide 23 mmol/L (22-29); Chloride 104 mmol/L (98-107); Creatinine Clr Calc Pharmacy 144.0554; Globulin 3.2 g/dL (1.3-4.6); Glucose 104 mg/dL (65-115); Osmolality Calculated 284 mOsm/kg (285-295); Potassium 3.7 mmol/L (3.5-5.1); Sodium 138 mmol/L (136-145); Total Protein 7.7 g/dL (6.6-8.7)
[2024-10-15 12:18] VITALS: BP 123/77; PULSE 65; O2SAT 100
[2024-10-15 12:36] VITALS: BP 115/69; PULSE 67; O2SAT 100
== END 2024-10-15 12:37 | disposition home or self-care (01) ==
PROVIDERS: Emergency Provider Emergency Medicine; PCP Nurse Practitioner Family
DX: O21.9 Vomiting of pregnancy, unspecified (principal); O26.891 Other specified pregnancy related conditions, first trimester; Z3A.01 Less than 8 weeks gestation of pregnancy; Z72.0 Tobacco use
CPT/HCPCS: 36415; 76801; 80053; 81001; 84702; 84703; 85025; 99284